=== PATIENT | female | born 1945 | race Caucasian/White ===

== ENCOUNTER 2016-05-31 06:19 | Day surgery (SDC) | payer MEDICARE ==
[~2016-05-31] VITALS: Ht 170.2 cm; Wt 88.5 kg
[~2016-05-31 06:19] MED LIST: ASPIRIN LOW DOS81 M2 PO; CALCIUM600 M1 PO; COREG6.25 MG PO; COZAAR100 MG PO; GABAPENTIN300 MG PO; GLIPIZIDE5 MG PO; LANTUS100 MG/ML SC; METFORMIN1000 MG PO; MOMETASONE0.1 %; NEURONTIN300 MG PO; NORVASC10 M1 PO; NOVOLOG MIX100 U/ML SC; OXYCODONE HCL5 MG PO; PAROXETINE40 MG PO; PERCOCET 10/31 COMBO PO; PRAVACHOL40 MG PO; PRILOSEC20 MG PO; PRIMIDONE50 MG PO; SYMBICORT 80-4.5MCG PO
[2016-05-31 08:51] VITALS: BP 140/68
== END 2016-05-31 08:47 | disposition home or self-care (01) ==
LOC: ENDO 06:19
PROVIDERS: ATTEND Internal Medicine Gastroenterology
PROC: 0DBN8ZX Excision of Sigmoid Colon, Via Natural or Artificial Opening Endoscopic, Diagnostic (ICD-10-PCS; principal; 2016-05-31)
PROC: 0DBE8ZX Excision of Large Intestine, Via Natural or Artificial Opening Endoscopic, Diagnostic (ICD-10-PCS; 2016-05-31)
DX: R19.7 Diarrhea, unspecified (principal); K63.5 Polyp of colon; K64.4 Residual hemorrhoidal skin tags; Q43.9 Congenital malformation of intestine, unspecified; K64.8 Other hemorrhoids; K57.30 Diverticulosis of large intestine without perforation or abscess without bleeding; K21.9 Gastro-esophageal reflux disease without esophagitis; I10 Essential (primary) hypertension; E11.9 Type 2 diabetes mellitus without complications; J44.9 Chronic obstructive pulmonary disease, unspecified; Z86.010 Personal history of colon polyps

== ENCOUNTER 2017-07-11 06:07 | Day surgery (SDC) | payer MEDICARE ==
[~2017-07-11] VITALS: Ht 170.2 cm; Wt 84.8 kg
[~2017-07-11 06:07] MED LIST changes: +BUPROPION150 M3 PO; +DIPHEN/ATROP2.5 MG PO; +LANTUS100 UNIT/M SC
[2017-07-11] MEDS ORDERED: PRAVASTATIN SOD20 MG PO (06:50)
[2017-07-11] MEDS ORDERED: LANTUS SOLOSTAR SC (06:53)
[2017-07-11] MEDS ORDERED: HYDROCODONE/ACE1 TAB PO (09:28)
[2017-07-11 10:29] VITALS: BP 154/70
== END 2017-07-11 11:00 | disposition home or self-care (01) ==
LOC: ORM 06:07
PROC: 0LQ24ZZ Repair Left Shoulder Tendon, Percutaneous Endoscopic Approach (ICD-10-PCS; principal; 2017-07-11)
PROC: 0LN24ZZ Release Left Shoulder Tendon, Percutaneous Endoscopic Approach (ICD-10-PCS; 2017-07-11)
PROC: 0RNK4ZZ Release Left Shoulder Joint, Percutaneous Endoscopic Approach (ICD-10-PCS; 2017-07-11)
PROC: 0PBB4ZZ Excision of Left Clavicle, Percutaneous Endoscopic Approach (ICD-10-PCS; 2017-07-11)
DX: M75.102 Unspecified rotator cuff tear or rupture of left shoulder, not specified as traumatic (principal); M25.812 Other specified joint disorders, left shoulder; M19.012 Primary osteoarthritis, left shoulder; M75.22 Bicipital tendinitis, left shoulder; I10 Essential (primary) hypertension; J44.9 Chronic obstructive pulmonary disease, unspecified; E11.9 Type 2 diabetes mellitus without complications
CPT/HCPCS: J1100

== ENCOUNTER 2018-06-10 11:07 | Emergency (ER) | payer MEDICARE ==
[~2018-06-10] VITALS: Ht 170.2 cm; Wt 81.8 kg
[~2018-06-10 11:07] MED LIST changes: +HYDROCODONE/ACE1 TAB PO; +LANTUS SOLOSTAR SC; +PRAVASTATIN SOD20 MG PO
[2018-06-10] MEDS ORDERED: VOLTAREN - GENE75 MG PO (12:21)
[2018-06-10] MEDS ORDERED: TRAMADOL HCL50 MG PO (12:21)
[2018-06-10 12:25] VITALS: BP 155/69
== END 2018-06-10 12:55 | disposition home or self-care (01) ==
LOC: ED 11:07
DX: S46.912A Strain of unspecified muscle, fascia and tendon at shoulder and upper arm level, left arm, initial encounter (principal); S09.90XA Unspecified injury of head, initial encounter; S30.0XXA Contusion of lower back and pelvis, initial encounter; E11.9 Type 2 diabetes mellitus without complications; I10 Essential (primary) hypertension; J44.9 Chronic obstructive pulmonary disease, unspecified; W54.8XXA Other contact with dog, initial encounter; Y92.009 Unspecified place in unspecified non-institutional (private) residence as the place of occurrence of the external cause

== ENCOUNTER 2018-08-03 09:12 | Emergency (ER) | payer MEDICARE ==
[~2018-08-03] VITALS: Ht 170.2 cm; Wt 90.0 kg
[~2018-08-03 09:12] MED LIST changes: +TRAMADOL HCL50 MG PO; +VOLTAREN - GENE75 MG PO
[2018-08-03 11:14] LABS: HEMATOCRIT 48.8 % (37.0-47.0); HEMOGLOBIN 15.4 g/dl (12.0-16.0); IMMATURE GRANULOCYTES 0.3 % (0.0-5.0); MEAN CELL VOLUME 86.7 fL CALC (80.0-100.0); MEAN CORPUSCULAR HGB 27.4 pG CALC (26.0-32.0); MEAN CORPUSCULAR HGB CONC 31.6 g/L CALC (32.0-36.0); NEUT# 7.82 thou/uL (2.00-7.15); RED BLOOD COUNT 5.63 mill/uL (4.20-5.60); RED CELL DISTRI WIDTH 13.8 % (11.5-15.5)
[2018-08-03 11:27] LABS: ALBUMIN 4.9 g/dL (3.2-5.0); ALKALINE PHOSPHATASE 73 u/l (38-126); ANION GAP 15 (6-22 (CALC)); BUN 8 mg/dL (8-23); BUN/CREATININE RATIO 12 (12-20 (CALC)); CARBON DIOXIDE 30 mmol/l (22-30); CHLORIDE 100 mmol/l (95-108); CREATININE 0.6 mg/dL (0.5-1.0); GFR > 60 ML/MIN (>=60 (CALC)); GFR FOR AFR.AMER. > 60 ML/MIN (>=60 (CALC)); LIPASE 65 u/l (23-300); POTASSIUM 4.3 mmol/l (3.5-5.1); SGOT/AST 25 u/l (9-36); SODIUM 141 mmol/l (137-146); TOTAL PROTEIN 8.3 g/dL (6.3-8.2)
[2018-08-03 11:42] LABS: URINE BILIRUBIN - DIPSTICK NEGATIVE (NEGATIVE); URINE BLOOD DIPSTICK TRACE-INTACT (NEGATIVE); URINE COLOR YELLOW; URINE GLUCOSE - DIPSTICK NEGATIVE (NEGATIVE); URINE KETONE NEGATIVE (NEGATIVE); URINE LEUK ESTERASE TRACE (NEGATIVE); URINE NITRITE - DIPSTICK NEGATIVE (Negative); URINE PROTEIN - DIPSTICK 100 mg/dL (NEG-TRACE); URINE UROBILINOGEN - DIPSTICK 0.2 E.U./dL (0.2)
[2018-08-03 11:43] LABS: BILIRUBIN, TOTAL 0.5 mg/dL (0.0-1.4); ETHYL ALCOHOL 0 mg/dl (0-30)
[2018-08-03 11:44] LABS: URINE RBC 0-2 RBC/hpf (0-5)
[2018-08-03 11:45] LABS: COCAINE NEGATIVE (NEGATIVE); METHADONE NEGATIVE (NEGATIVE); TETRAHYDROCANNABIONOL NEGATIVE (NEGATIVE); URINE AMORPH SEDIMENT MODERATE hpf (NONE-FEW); URINE BACTERIA FEW hpf; URINE EPITHELIAL CELLS MANY EPI/hpf (0-FEW); URINE MUCUS MODERATE hpf (NONE-FEW); URINE WBC 0-2 WBC/hpf (0-5)
[2018-08-03 11:46] LABS: BARBITURATES POSITIVE (NEGATIVE); OXCYCODONE NEGATIVE (NEGATIVE); TRICYLIC ANTIDEPRESSANTS NEGATIVE (NEGATIVE)
[2018-08-03 12:05] LABS: TSH, 3RD GENERATION 3.72 uIU/mL (0.47 - 4.68)
[2018-08-03 15:42] VITALS: BP 170/75
== END 2018-08-03 15:53 ==
LOC: ED 09:12
PROVIDERS: Family Medicine
DX: R45.851 Suicidal ideations (principal); F41.9 Anxiety disorder, unspecified; F32.9 Major depressive disorder, single episode, unspecified; R10.32 Left lower quadrant pain; E11.9 Type 2 diabetes mellitus without complications; I10 Essential (primary) hypertension; J44.9 Chronic obstructive pulmonary disease, unspecified; T50.906A Underdosing of unspecified drugs, medicaments and biological substances, initial encounter; Z91.128 Patient's intentional underdosing of medication regimen for other reason
CPT/HCPCS: Q9967

== ENCOUNTER 2020-05-24 | Emergency (ER) | payer MEDICARE ==
[2020-05-24 23:12] LABS: IMMATURE GRANULOCYTES 0.3 % (0.0-5.0); MEAN CORPUSCULAR HGB 28.1 pG CALC (26.0-32.0); MEAN CORPUSCULAR HGB CONC 31.5 g/dL CAL (32.0-36.0); NEUT# 7.71 thou/uL (2.00-7.15); RED BLOOD COUNT 4.74 mill/uL (4.20-5.60); RED CELL DISTRI WIDTH 14.1 % (11.5-15.5)
[2020-05-24 23:23] LABS: HEMATOCRIT 42.2 % (37.0-47.0); HEMOGLOBIN 13.3 g/dl (12.0-16.0)
[2020-05-24 23:32] LABS: ALBUMIN 4.4 g/dL (3.2-5.0); ALKALINE PHOSPHATASE 73 u/l (38-126); AMYLASE 54 u/l (30-110); ANION GAP 13 (6-22 (CALC)); BILIRUBIN, TOTAL 0.5 mg/dL (0.0-1.4); BUN 11 mg/dL (8-23); BUN/CREATININE RATIO 13 (12-20 (CALC)); CARBON DIOXIDE 31 mmol/l (22-30); CHLORIDE 99 mmol/l (95-108); CREATININE 0.8 mg/dL (0.5-1.0); GFR > 60 ML/MIN (>=60 (CALC)); GFR FOR AFR.AMER. > 60 ML/MIN (>=60 (CALC)); LIPASE 159 u/l (23-300); SGOT/AST 23 u/l (9-36); SODIUM 139 mmol/l (137-146); TOTAL PROTEIN 7.6 g/dL (6.3-8.2)
[2020-05-24 23:34] LABS: PROTHROMBIN TIME 10.1 SECONDS (9.0-12.5)
[2020-05-24 23:50] LABS: URINE BILIRUBIN - DIPSTICK NEGATIVE (NEGATIVE); URINE BLOOD DIPSTICK TRACE-INTACT (NEGATIVE); URINE COLOR YELLOW; URINE GLUCOSE - DIPSTICK NEGATIVE (NEGATIVE); URINE PROTEIN - DIPSTICK TRACE mg/dL (NEG-TRACE); URINE SPECIFIC GRAVITY 1.025; URINE UROBILINOGEN - DIPSTICK 0.2 E.U./dL (0.2)
[2020-05-24] MEDS ORDERED: VITAMIN C 500 M1 TAB PO (23:52)
[2020-05-24] MEDS ORDERED: ALLERGY RELF10 M5 PO (23:53)
[2020-05-24] MEDS ORDERED: VITAMIN D31000 UNI1 PO (23:53)
[2020-05-24] MEDS ORDERED: MYRBETRIQ50 MG PO (23:54)
[2020-05-24] MEDS ORDERED: BUPROPION HCL150 M1 PO (23:55)
[2020-05-24] MEDS ORDERED: HUMALOG KW100 UNIT/M SC (23:56)
[2020-05-25] LABS: URINE LEUK ESTERASE SMALL (NEGATIVE); URINE NITRITE - DIPSTICK NEGATIVE (Negative)
[2020-05-25 00:01] LABS: URINE KETONE NEGATIVE (NEGATIVE)
[2020-05-25 00:03] LABS: URINE BACTERIA MODERATE hpf; URINE EPITHELIAL CELLS MODERATE EPI/hpf (0-FEW)
== END 2020-05-25 02:20 | disposition home or self-care (01) ==
PROVIDERS: Emergency Medicine
DX: K62.5 Hemorrhage of anus and rectum (principal); E11.9 Type 2 diabetes mellitus without complications; I10 Essential (primary) hypertension; J44.9 Chronic obstructive pulmonary disease, unspecified; F32.9 Major depressive disorder, single episode, unspecified; F41.9 Anxiety disorder, unspecified; Z79.4 Long term (current) use of insulin; R82.71 Bacteriuria
CPT/HCPCS: Q9967